=== PATIENT | female | born 1990 | race Caucasian/White ===

== ENCOUNTER 2022-02-21 12:17 | Emergency (ER) | payer OTHER ==
[2022-02-21] MEDS ORDERED: Fluorescein Opthalmic Strip ONE (12:54)
[2022-02-21] MEDS ORDERED: Tetracaine 0.5% PF 4 ML BOT ONE (12:54)
[2022-02-21] MEDS ORDERED: Erythromycin Base 0.5% Oint 1 GM TUBE ONE (13:05)
== END 2022-02-21 13:15 | disposition home or self-care (01) ==
LOC: NAV ERS 12:17
DX: S05.01XA Injury of conjunctiva and corneal abrasion without foreign body, right eye, initial encounter (principal); W50.4XXA Accidental scratch by another person, initial encounter
CPT/HCPCS: 99283